=== PATIENT | male | born 1955 | race Caucasian/White ===

== ENCOUNTER → 2017-09-18 | Outpatient (CLI) | payer OTHER ==
[~2017-09-18] MED LIST: ASPI81TA28 PO; ATOR-26 PO; LISI-726 PO; MULTTAB58 PO; PANT40TA2 PO; PLN5 PO
[2017-09-26 21:36] LABS: V-ZOSTER CULT ISOLATED
== END | disposition home or self-care (01) ==
LOC: C.LABSPEC 16:33
PROVIDERS: ATTEND Dermatology
DX: B02.9 Zoster without complications (principal)